=== PATIENT | female | born 1975 | race Caucasian/White ===

== ENCOUNTER → 2017-07-17 | Outpatient (CLI) | payer OTHER ==
[~2017-07-17] MED LIST: ALPR1TAB5 PO; ARIP5TAB13 PO; CLON1TAB23 PO; DESV100T PO; FOLI-17 PO; GABA300C10 PO; Gabapentin PO; LEVO15TA6 PO; METH10TA54 PO; MIRT30TA3 PO; OXYC-307 PO; POTA20TA6 PO; PRAZ5CAP2 PO; REGADENOSON 0.4 MG/5 ML SYRINGE ONE; TOPI100T24 PO; TOPI25TA8 PO; TRIA1TAB5 PO; VENL150C6 PO; VENL75CA6 PO; VIT1CAPS42 PO
== END | disposition home or self-care (01) ==
LOC: CFH 06:40
PROVIDERS: ATTEND Internal Medicine Cardiovascular Disease
DX: I37.1 Nonrheumatic pulmonary valve insufficiency (principal); M45.6 Ankylosing spondylitis lumbar region; E78.5 Hyperlipidemia, unspecified
CPT/HCPCS: 78452; 93017; 93306; A9502; J2785

== ENCOUNTER → 2017-11-05 | Outpatient (CLI) | payer OTHER ==
[~2017-11-05] MED LIST changes: -REGADENOSON 0.4 MG/5 ML SYRINGE ONE
== END | disposition home or self-care (01) ==
LOC: RAD 10:36
PROVIDERS: ATTEND Neurological Surgery
DX: Z01.818 Encounter for other preprocedural examination (principal); M50.30 Other cervical disc degeneration, unspecified cervical region
CPT/HCPCS: 71046